=== PATIENT | male | born 1945 | race Caucasian/White ===

== ENCOUNTER 2017-12-21 07:03 | Inpatient (IN) | payer OTHER ==
[2017-12-21 07:33] LABS: ADD MAN DIFF? NO
[2017-12-21 07:41] LABS: BASO % 1 % (0-3); EOS # 0.4 x10^3/uL (0.0-0.7); EOS % 8 % (0-3); HEMATOCRIT 32.8 % (39.0-53.0); HEMOGLOBIN 11.1 g/dL (13.0-17.5); LYMPH # 1.2 x10^3/uL (1.0-4.8); LYMPH % 23 % (24-48); MEAN CORPUSCULAR HEMOGLOBIN 29 pg (25-35); MEAN CORPUSCULAR HGB CONC 34 g/dL (31-37); MEAN CORPUSCULAR VOLUME 85 fL (79-100); MONO # 0.4 x10^3/uL (0.0-1.1); MONO % 9 % (0-9); NEUT % 60 % (31-73); PLATELET COUNT 200 x10^3/uL (140-400); RED BLOOD COUNT 3.84 x10^6/uL (4.30-5.70); RED CELL DISTRIBUTION WIDTH 15.2 % (11.5-14.5); WHITE BLOOD COUNT 5.1 x10^3/uL (4.0-11.0)
[2017-12-21 07:54] LABS: ANION GAP 7 (6-14); BLOOD UREA NITROGEN 21 mg/dL (8-26); BUN/CREATININE RATIO 23 (6-20); CALCIUM 8.6 mg/dL (8.5-10.1); CARBON DIOXIDE 30 mmol/L (21-32); CHLORIDE 103 mmol/L (98-107); CREATININE 0.9 mg/dL (0.7-1.3); GFR 83.2; GLUCOSE 100 mg/dL (70-99); POTASSIUM 3.9 mmol/L (3.5-5.1); SODIUM 140 mmol/L (136-145)
[2017-12-21 07:56] LABS: TROPONINI < 0.017 ng/mL (0.000-0.055)
[2017-12-21] MEDS: FUROSEMIDE 20 MG/2 ML VIAL. IV (07:56)
[2017-12-21] MEDS: ASPIRIN CHEWABLE 81 MG TABLET. PO (07:57)
[2017-12-21] MEDS: MORPHINE SULFATE 4 MG/ML DISP.SYRIN. IV (07:57)
[2017-12-21 07:58] LABS: ALBUMIN 3.6 g/dL (3.4-5.0); ALBUMIN/GLOBULIN RATIO 0.9 (1.0-1.7); ALK PHOS 95 U/L (46-116); ALT (SGPT) 23 U/L (16-63); AST (SGOT) 25 U/L (15-37); TOTAL BILIRUBIN 0.5 mg/dL (0.2-1.0); TOTAL PROTEIN 7.4 g/dL (6.4-8.2)
[2017-12-21 07:59] LABS: INR 1.2 (0.8-1.1); PROTHROMBIN TIME PATIENT 14.2 SEC (11.7-14.0)
[2017-12-21 08:02] LABS: BILIRUBIN,URINE NEGATIVE (NEG); CLARITY,URINE CLEAR; COLOR,URINE YELLOW; GLUCOSE,URINE NEGATIVE (NEG); NITRITE,URINE NEGATIVE (NEG); PH,URINE 7.5; PROTEIN,URINE 100 mg/dL (NEG-TRACE); UROBILINOGEN,URINE 0.2 mg/dL (0.2 mg/dL)
[2017-12-21 08:04] LABS: CKMB INDEX 0.4 % (0-4); CKMB MASS 0.6 ng/mL (0.0-3.6); CREATINE KINASE 149 U/L (39-308)
[2017-12-21 08:04] LABS: NT-PRO BNP 1159 pg/mL (0-124)
[2017-12-21 08:11] LABS: LACTIC ACID 0.9 mmol/L (0.4-2.0)
[2017-12-21] MEDS: NITROGLYCERIN PREMIX 250 ML IV (08:25)
[2017-12-21 08:31] LABS: BACTERIA,URINE 0 /HPF (0-FEW); SQUAMOUS EPITHELIAL CELL,UR FEW /LPF
[2017-12-21] MEDS ORDERED: 0.9 % SODIUM CHLORIDE 10 ML DISP.SYRIN. IV (12:45)
[2017-12-21 12:47] LABS: POC GLUCOSE 85 mg/dL (70-99)
[2017-12-21 12:54] LABS: TROPONINI < 0.017 ng/mL (0.000-0.055)
[2017-12-21] MEDS ORDERED: ACETAMINOPHEN 500 MG TABLET PO (13:00)
[2017-12-21] MEDS ORDERED: NITROGLYCERIN SUBLINGUAL 0.4 MG BOTTLE OF 25. SL (13:00)
[2017-12-21] MEDS ORDERED: ONDANSETRON ODT 4 MG TAB.RAPDIS. PO (13:00)
[2017-12-21] MEDS ORDERED: oxyCODONE IR 5 MG TABLET PO (13:15)
[2017-12-21] MEDS: METOPROLOL SUCC 24HR ER 100 MG TAB.ER.24H. PO (14:00)
[2017-12-21 15:53] LABS: TROPONINI < 0.017 ng/mL (0.000-0.055)
[2017-12-21] MEDS: CETIRIZINE HCL 10 MG TABLET. PO (16:10)
[2017-12-21] MEDS: levETIRAcetam 500 MG TABLET PO ×2 (16:10→21:06)
[2017-12-21] MEDS: MULTIVITAMIN with MINERAL TABLET. PO (16:10)
[2017-12-21] MEDS: CHOLECALCIFEROL (VITAMIN D3) 1,000 UNIT TABLET PO (16:10)
[2017-12-21] MEDS: GABAPENTIN 400 MG CAPSULE. PO ×2 (16:11→21:05)
[2017-12-21] MEDS: SENNOSIDES/DOCUSATE 8.6/50MG TABLET. PO ×2 (16:11→21:06)
[2017-12-21] MEDS: OMEGA-3 FATTY ACIDS/FISH OIL 1,000 MG CAPSULE. PO (16:11)
[2017-12-21] MEDS: PANTOPRAZOLE 40 MG TABLET.DR. PO (16:11)
[2017-12-21] MEDS: POTASSIUM CHLORIDE 20 MEQ TABLET.ER. PO (16:12)
[2017-12-21] MEDS: SERTRALINE 50 MG TABLET. PO (16:12)
[2017-12-21] MEDS: amLODIPine BESYLATE 10 MG TABLET PO (16:13)
[2017-12-21] MEDS: lamoTRIgine 100 MG TABLET. PO (16:13)
[2017-12-21] MEDS: ISOSORBIDE MONONITRATE ER 30 MG TAB.ER.24H PO (16:14)
[2017-12-21] MEDS: INSULIN LISPRO 300 UNITS/3 ML INSULN.PEN. SQ (17:00)
[2017-12-21 17:31] LABS: POC GLUCOSE 103 mg/dL (70-99)
[2017-12-21] MEDS: PRIMIDONE 250 MG TABLET PO (18:25)
[2017-12-21] MEDS: LOSARTAN POTASSIUM 50 MG TABLET. PO (18:26)
[2017-12-21] MEDS: ACETAMINOPHEN 325 MG TABLET. PO (18:28)
[2017-12-21] MEDS: LABETALOL HCL 200 MG TABLET PO (21:06)
[2017-12-21] MEDS: ATORVASTATIN CALCIUM 40 MG TABLET. PO (21:06)
[2017-12-21] MEDS: LATANOPROST 0.005% OPHTH SOLUTION 2.5ML BOTTLE. OU (21:07)
[2017-12-21] MEDS: INSULIN GLARGINE 300 UNITS/3 ML INSULN.PEN. SQ (21:10)
[2017-12-21 22:15] LABS: MRSA BY PCR Negative (Negative)
[2017-12-22 00:06] LABS: POC GLUCOSE 109 mg/dL (70-99)
[2017-12-22 04:29] LABS: ADD MAN DIFF? NO
[2017-12-22 04:40] LABS: BASO % 1 % (0-3); EOS # 0.4 x10^3/uL (0.0-0.7); EOS % 8 % (0-3); HEMATOCRIT 29.1 % (39.0-53.0); HEMOGLOBIN 9.8 g/dL (13.0-17.5); LYMPH # 1.1 x10^3/uL (1.0-4.8); LYMPH % 22 % (24-48); MEAN CORPUSCULAR HEMOGLOBIN 29 pg (25-35); MEAN CORPUSCULAR HGB CONC 34 g/dL (31-37); MEAN CORPUSCULAR VOLUME 85 fL (79-100); MONO # 0.5 x10^3/uL (0.0-1.1); MONO % 10 % (0-9); NEUT # 2.8 x10^3uL (1.8-7.7); NEUT % 59 % (31-73); PLATELET COUNT 191 x10^3/uL (140-400); RED BLOOD COUNT 3.41 x10^6/uL (4.30-5.70); RED CELL DISTRIBUTION WIDTH 14.9 % (11.5-14.5); WHITE BLOOD COUNT 4.7 x10^3/uL (4.0-11.0)
[2017-12-22 05:18] LABS: INR 1.2 (0.8-1.1); PROTHROMBIN TIME PATIENT 14.9 SEC (11.7-14.0)
[2017-12-22 05:35] LABS: ALBUMIN 3.1 g/dL (3.4-5.0); ALK PHOS 85 U/L (46-116); ALT (SGPT) 20 U/L (16-63); ANION GAP 10 (6-14); AST (SGOT) 17 U/L (15-37); BLOOD UREA NITROGEN 20 mg/dL (8-26); BUN/CREATININE RATIO 18 (6-20); CALCIUM 8.5 mg/dL (8.5-10.1); CARBON DIOXIDE 30 mmol/L (21-32); CHLORIDE 103 mmol/L (98-107); CREATININE 1.1 mg/dL (0.7-1.3); GLUCOSE 94 mg/dL (70-99); POTASSIUM 3.1 mmol/L (3.5-5.1); SODIUM 143 mmol/L (136-145); TOTAL BILIRUBIN 0.3 mg/dL (0.2-1.0); TOTAL PROTEIN 6.2 g/dL (6.4-8.2)
[2017-12-22] MEDS: PANTOPRAZOLE 40 MG TABLET.DR. PO (08:47)
[2017-12-22] MEDS: POTASSIUM CHLORIDE 20 MEQ TABLET.ER. PO ×3 (08:48→13:04)
[2017-12-22] MEDS: OMEGA-3 FATTY ACIDS/FISH OIL 1,000 MG CAPSULE. PO (08:48)
[2017-12-22] MEDS: levETIRAcetam 500 MG TABLET PO ×2 (08:49→20:20)
[2017-12-22] MEDS: LOSARTAN POTASSIUM 50 MG TABLET. PO (08:49)
[2017-12-22] MEDS: amLODIPine BESYLATE 10 MG TABLET PO (08:49)
[2017-12-22] MEDS: SENNOSIDES/DOCUSATE 8.6/50MG TABLET. PO ×2 (08:49→20:23)
[2017-12-22] MEDS: CHOLECALCIFEROL (VITAMIN D3) 1,000 UNIT TABLET PO (08:49)
[2017-12-22] MEDS: ISOSORBIDE MONONITRATE ER 30 MG TAB.ER.24H PO (08:50)
[2017-12-22] MEDS: GABAPENTIN 400 MG CAPSULE. PO ×3 (08:50→20:21)
[2017-12-22] MEDS: MULTIVITAMIN with MINERAL TABLET. PO (08:50)
[2017-12-22] MEDS: CETIRIZINE HCL 10 MG TABLET. PO (08:50)
[2017-12-22] MEDS: lamoTRIgine 100 MG TABLET. PO (08:50)
[2017-12-22] MEDS: SERTRALINE 50 MG TABLET. PO (08:50)
[2017-12-22] MEDS: LABETALOL HCL 200 MG TABLET PO ×2 (09:00→20:20)
[2017-12-22 09:20] LABS: POC GLUCOSE 90 mg/dL (70-99)
[2017-12-22 09:27] LABS: MAGNESIUM 1.9 mg/dL (1.8-2.4)
[2017-12-22] MEDS: ASPIRIN ENTERIC COATED 81 MG TABLET.DR. PO (10:31)
[2017-12-22] MEDS: FUROSEMIDE 40 MG/4 ML VIAL. IVP (10:31)
[2017-12-22 13:09] LABS: POC GLUCOSE 128 mg/dL (70-99)
[2017-12-22] MEDS: PRIMIDONE 250 MG TABLET PO (17:51)
[2017-12-22] MEDS: INSULIN LISPRO 300 UNITS/3 ML INSULN.PEN. SQ (17:53)
[2017-12-22] MEDS: ATORVASTATIN CALCIUM 40 MG TABLET. PO (20:20)
[2017-12-22] MEDS: LATANOPROST 0.005% OPHTH SOLUTION 2.5ML BOTTLE. OU (20:21)
[2017-12-22] MEDS: INSULIN GLARGINE 300 UNITS/3 ML INSULN.PEN. SQ (20:23)
[2017-12-22 20:24] LABS: POC GLUCOSE 153 mg/dL (70-99)
[2017-12-23 02:55] LABS: POC GLUCOSE 139 mg/dL (70-99)
[2017-12-23 04:47] LABS: ADD MAN DIFF? NO
[2017-12-23 04:53] LABS: BASO % 0 % (0-3); EOS # 0.4 x10^3/uL (0.0-0.7); EOS % 8 % (0-3); HEMATOCRIT 29.6 % (39.0-53.0); HEMOGLOBIN 10.1 g/dL (13.0-17.5); LYMPH # 1.1 x10^3/uL (1.0-4.8); LYMPH % 20 % (24-48); MEAN CORPUSCULAR HEMOGLOBIN 29 pg (25-35); MEAN CORPUSCULAR HGB CONC 34 g/dL (31-37); MEAN CORPUSCULAR VOLUME 85 fL (79-100); MONO # 0.6 x10^3/uL (0.0-1.1); MONO % 10 % (0-9); NEUT # 3.5 x10^3uL (1.8-7.7); NEUT % 62 % (31-73); PLATELET COUNT 195 x10^3/uL (140-400); RED BLOOD COUNT 3.48 x10^6/uL (4.30-5.70); RED CELL DISTRIBUTION WIDTH 14.8 % (11.5-14.5); WHITE BLOOD COUNT 5.6 x10^3/uL (4.0-11.0)
[2017-12-23 05:19] LABS: ALBUMIN 3.1 g/dL (3.4-5.0); ALK PHOS 88 U/L (46-116); ALT (SGPT) 18 U/L (16-63); ANION GAP 7 (6-14); AST (SGOT) 13 U/L (15-37); BLOOD UREA NITROGEN 18 mg/dL (8-26); BUN/CREATININE RATIO 20 (6-20); CALCIUM 8.7 mg/dL (8.5-10.1); CARBON DIOXIDE 30 mmol/L (21-32); CHLORIDE 104 mmol/L (98-107); CREATININE 0.9 mg/dL (0.7-1.3); GFR 83.2; GLUCOSE 75 mg/dL (70-99); POTASSIUM 3.4 mmol/L (3.5-5.1); SODIUM 141 mmol/L (136-145); TOTAL BILIRUBIN 0.3 mg/dL (0.2-1.0); TOTAL PROTEIN 6.3 g/dL (6.4-8.2)
[2017-12-23 07:56] LABS: POC GLUCOSE 84 mg/dL (70-99)
[2017-12-23] MEDS: OMEGA-3 FATTY ACIDS/FISH OIL 1,000 MG CAPSULE. PO (08:29)
[2017-12-23] MEDS: levETIRAcetam 500 MG TABLET PO ×2 (08:29→21:18)
[2017-12-23] MEDS: ASPIRIN ENTERIC COATED 81 MG TABLET.DR. PO (08:30)
[2017-12-23] MEDS: PANTOPRAZOLE 40 MG TABLET.DR. PO (08:30)
[2017-12-23] MEDS: SERTRALINE 50 MG TABLET. PO (08:30)
[2017-12-23] MEDS: lamoTRIgine 100 MG TABLET. PO (08:31)
[2017-12-23] MEDS: CHOLECALCIFEROL (VITAMIN D3) 1,000 UNIT TABLET PO (08:31)
[2017-12-23] MEDS: POTASSIUM CHLORIDE 20 MEQ TABLET.ER. PO (08:31)
[2017-12-23] MEDS: MULTIVITAMIN with MINERAL TABLET. PO (08:31)
[2017-12-23] MEDS: CETIRIZINE HCL 10 MG TABLET. PO (08:32)
[2017-12-23] MEDS: SENNOSIDES/DOCUSATE 8.6/50MG TABLET. PO ×2 (08:32→21:18)
[2017-12-23] MEDS: GABAPENTIN 400 MG CAPSULE. PO ×3 (08:32→21:18)
[2017-12-23] MEDS: LABETALOL HCL 200 MG TABLET PO ×2 (08:32→21:17)
[2017-12-23] MEDS: amLODIPine BESYLATE 10 MG TABLET PO (08:33)
[2017-12-23] MEDS: ISOSORBIDE MONONITRATE ER 30 MG TAB.ER.24H PO (08:34)
[2017-12-23] MEDS: METOPROLOL TARTRATE 5 MG/5 ML VIAL. IVP (10:20)
[2017-12-23 11:09] LABS: POC GLUCOSE 155 mg/dL (70-99)
[2017-12-23 16:10] LABS: POC GLUCOSE 143 mg/dL (70-99)
[2017-12-23] MEDS: PRIMIDONE 250 MG TABLET PO (17:27)
[2017-12-23] MEDS: LOSARTAN POTASSIUM 50 MG TABLET. PO (17:27)
[2017-12-23] MEDS: INSULIN LISPRO 300 UNITS/3 ML INSULN.PEN. SQ (17:30)
[2017-12-23 20:15] LABS: POC GLUCOSE 165 mg/dL (70-99)
[2017-12-23] MEDS: ATORVASTATIN CALCIUM 40 MG TABLET. PO (21:17)
[2017-12-23] MEDS: LATANOPROST 0.005% OPHTH SOLUTION 2.5ML BOTTLE. OU (21:22)
[2017-12-23] MEDS: INSULIN GLARGINE 300 UNITS/3 ML INSULN.PEN. SQ (21:36)
[2017-12-24 07:43] LABS: POC GLUCOSE 114 mg/dL (70-99)
[2017-12-24] MEDS: OMEGA-3 FATTY ACIDS/FISH OIL 1,000 MG CAPSULE. PO (07:51)
[2017-12-24] MEDS: SERTRALINE 50 MG TABLET. PO (07:51)
[2017-12-24] MEDS: CETIRIZINE HCL 10 MG TABLET. PO (07:51)
[2017-12-24] MEDS: lamoTRIgine 100 MG TABLET. PO (07:51)
[2017-12-24] MEDS: GABAPENTIN 400 MG CAPSULE. PO ×3 (07:52→21:16)
[2017-12-24] MEDS: PANTOPRAZOLE 40 MG TABLET.DR. PO (07:52)
[2017-12-24] MEDS: CHOLECALCIFEROL (VITAMIN D3) 1,000 UNIT TABLET PO (07:52)
[2017-12-24] MEDS: POTASSIUM CHLORIDE 20 MEQ TABLET.ER. PO (07:52)
[2017-12-24] MEDS: MULTIVITAMIN with MINERAL TABLET. PO (07:52)
[2017-12-24] MEDS: SENNOSIDES/DOCUSATE 8.6/50MG TABLET. PO ×2 (07:52→21:16)
[2017-12-24] MEDS: levETIRAcetam 500 MG TABLET PO ×2 (07:52→21:16)
[2017-12-24] MEDS: ASPIRIN ENTERIC COATED 81 MG TABLET.DR. PO (07:53)
[2017-12-24] MEDS: amLODIPine BESYLATE 10 MG TABLET PO (07:54)
[2017-12-24] MEDS: ISOSORBIDE MONONITRATE ER 30 MG TAB.ER.24H PO (07:54)
[2017-12-24] MEDS: LABETALOL HCL 200 MG TABLET PO ×2 (10:07→21:17)
[2017-12-24] MEDS: FUROSEMIDE 40 MG/4 ML VIAL. IVP (11:20)
[2017-12-24 11:53] LABS: POC GLUCOSE 107 mg/dL (70-99)
[2017-12-24 16:24] LABS: POC GLUCOSE 93 mg/dL (70-99)
[2017-12-24] MEDS: fentaNYL PF VIAL 100 MCG/2 ML VIAL IV (17:50)
[2017-12-24] MEDS: IODIXANOL 320 MG/ML 100 ML VIAL. IART (17:50)
[2017-12-24] MEDS: LIDOCAINE 2% 20 ML VIAL. IJ (17:50)
[2017-12-24] MEDS: MIDAZOLAM HCL/PF 2 MG/2 ML VIAL. IV (17:51)
[2017-12-24] MEDS: PRIMIDONE 250 MG TABLET PO (18:18)
[2017-12-24] MEDS: LOSARTAN POTASSIUM 50 MG TABLET. PO (18:18)
[2017-12-24] MEDS: INSULIN LISPRO 300 UNITS/3 ML INSULN.PEN. SQ (18:25)
[2017-12-24 18:27] LABS: POC GLUCOSE 91 mg/dL (70-99)
[2017-12-24] MEDS ORDERED: NITROGLYCERIN SUBLINGUAL 0.4 MG BOTTLE OF 25. SL (18:45)
[2017-12-24] MEDS: ACETAMINOPHEN 325 MG TABLET. PO (19:18)
[2017-12-24] MEDS: ATORVASTATIN CALCIUM 40 MG TABLET. PO (21:17)
[2017-12-24] MEDS: LATANOPROST 0.005% OPHTH SOLUTION 2.5ML BOTTLE. OU (21:22)
[2017-12-24] MEDS: INSULIN GLARGINE 300 UNITS/3 ML INSULN.PEN. SQ (21:28)
[2017-12-24 22:02] LABS: POC GLUCOSE 98 mg/dL (70-99)
[2017-12-25 08:00] LABS: POC GLUCOSE 85 mg/dL (70-99)
[2017-12-25] MEDS: levETIRAcetam 500 MG TABLET PO ×2 (08:08→21:33)
[2017-12-25] MEDS: PANTOPRAZOLE 40 MG TABLET.DR. PO (08:08)
[2017-12-25] MEDS: POTASSIUM CHLORIDE 20 MEQ TABLET.ER. PO (08:08)
[2017-12-25] MEDS: MULTIVITAMIN with MINERAL TABLET. PO (08:08)
[2017-12-25] MEDS: CETIRIZINE HCL 10 MG TABLET. PO (08:08)
[2017-12-25] MEDS: lamoTRIgine 100 MG TABLET. PO (08:08)
[2017-12-25] MEDS: LABETALOL HCL 200 MG TABLET PO ×2 (08:09→21:34)
[2017-12-25] MEDS: OMEGA-3 FATTY ACIDS/FISH OIL 1,000 MG CAPSULE. PO (08:09)
[2017-12-25] MEDS: ASPIRIN ENTERIC COATED 81 MG TABLET.DR. PO (08:09)
[2017-12-25] MEDS: amLODIPine BESYLATE 10 MG TABLET PO (08:09)
[2017-12-25] MEDS: CHOLECALCIFEROL (VITAMIN D3) 1,000 UNIT TABLET PO (08:09)
[2017-12-25] MEDS: SERTRALINE 50 MG TABLET. PO (08:09)
[2017-12-25] MEDS: SENNOSIDES/DOCUSATE 8.6/50MG TABLET. PO ×2 (08:09→21:34)
[2017-12-25] MEDS: ISOSORBIDE MONONITRATE ER 30 MG TAB.ER.24H PO (08:10)
[2017-12-25] MEDS: GABAPENTIN 400 MG CAPSULE. PO ×3 (08:10→21:34)
[2017-12-25 11:25] LABS: POC GLUCOSE 149 mg/dL (70-99)
[2017-12-25] MEDS: FUROSEMIDE 40 MG/4 ML VIAL. IVP (12:13)
[2017-12-25] MEDS: ACETAMINOPHEN 325 MG TABLET. PO (15:16)
[2017-12-25 16:45] LABS: POC GLUCOSE 152 mg/dL (70-99)
[2017-12-25] MEDS: PRIMIDONE 250 MG TABLET PO (17:31)
[2017-12-25] MEDS: LOSARTAN POTASSIUM 50 MG TABLET. PO (17:31)
[2017-12-25] MEDS: INSULIN LISPRO 300 UNITS/3 ML INSULN.PEN. SQ (17:34)
[2017-12-25 21:20] LABS: POC GLUCOSE 125 mg/dL (70-99)
[2017-12-25] MEDS: LATANOPROST 0.005% OPHTH SOLUTION 2.5ML BOTTLE. OU (21:33)
[2017-12-25] MEDS: ATORVASTATIN CALCIUM 40 MG TABLET. PO (21:34)
[2017-12-25] MEDS: INSULIN GLARGINE 300 UNITS/3 ML INSULN.PEN. SQ (21:39)
[2017-12-26 06:00] LABS: ANION GAP 9 (6-14); BLOOD UREA NITROGEN 22 mg/dL (8-26); CALCIUM 8.6 mg/dL (8.5-10.1); CARBON DIOXIDE 30 mmol/L (21-32); CHLORIDE 99 mmol/L (98-107); GFR 73.7; GLUCOSE 109 mg/dL (70-99); POTASSIUM 3.4 mmol/L (3.5-5.1); SODIUM 138 mmol/L (136-145)
[2017-12-26 07:47] LABS: POC GLUCOSE 105 mg/dL (70-99)
[2017-12-26] MEDS: lamoTRIgine 100 MG TABLET. PO (08:10)
[2017-12-26] MEDS: SERTRALINE 50 MG TABLET. PO (08:10)
[2017-12-26] MEDS: FUROSEMIDE 40 MG TABLET. PO (08:10)
[2017-12-26] MEDS: SENNOSIDES/DOCUSATE 8.6/50MG TABLET. PO ×2 (08:10→20:47)
[2017-12-26] MEDS: POTASSIUM CHLORIDE 20 MEQ TABLET.ER. PO (08:10)
[2017-12-26] MEDS: ISOSORBIDE MONONITRATE ER 30 MG TAB.ER.24H PO (08:11)
[2017-12-26] MEDS: CETIRIZINE HCL 10 MG TABLET. PO (08:11)
[2017-12-26] MEDS: GABAPENTIN 400 MG CAPSULE. PO ×3 (08:11→20:46)
[2017-12-26] MEDS: ASPIRIN ENTERIC COATED 81 MG TABLET.DR. PO (08:11)
[2017-12-26] MEDS: levETIRAcetam 500 MG TABLET PO ×2 (08:11→20:46)
[2017-12-26] MEDS: amLODIPine BESYLATE 10 MG TABLET PO (08:11)
[2017-12-26] MEDS: MULTIVITAMIN with MINERAL TABLET. PO (08:11)
[2017-12-26] MEDS: OMEGA-3 FATTY ACIDS/FISH OIL 1,000 MG CAPSULE. PO (08:11)
[2017-12-26] MEDS: LABETALOL HCL 200 MG TABLET PO ×2 (08:12→20:47)
[2017-12-26] MEDS: CHOLECALCIFEROL (VITAMIN D3) 1,000 UNIT TABLET PO (08:12)
[2017-12-26] MEDS: PANTOPRAZOLE 40 MG TABLET.DR. PO (08:12)
[2017-12-26 11:43] LABS: POC GLUCOSE 171 mg/dL (70-99)
[2017-12-26 15:44] LABS: POC GLUCOSE 111 mg/dL (70-99)
[2017-12-26] MEDS: PRIMIDONE 250 MG TABLET PO (17:18)
[2017-12-26] MEDS: LOSARTAN POTASSIUM 50 MG TABLET. PO (17:18)
[2017-12-26] MEDS: INSULIN LISPRO 300 UNITS/3 ML INSULN.PEN. SQ (17:22)
[2017-12-26 20:39] LABS: POC GLUCOSE 157 mg/dL (70-99)
[2017-12-26] MEDS: ATORVASTATIN CALCIUM 40 MG TABLET. PO (20:46)
[2017-12-26] MEDS: LATANOPROST 0.005% OPHTH SOLUTION 2.5ML BOTTLE. OU (20:46)
[2017-12-26] MEDS: INSULIN GLARGINE 300 UNITS/3 ML INSULN.PEN. SQ (20:53)
[2017-12-27 06:30] LABS: ALBUMIN 3.2 g/dL (3.4-5.0); ALBUMIN/GLOBULIN RATIO 0.9 (1.0-1.7); ALK PHOS 91 U/L (46-116); ALT (SGPT) 16 U/L (16-63); ANION GAP 7 (6-14); AST (SGOT) 13 U/L (15-37); BLOOD UREA NITROGEN 22 mg/dL (8-26); BUN/CREATININE RATIO 22 (6-20); CALCIUM 8.7 mg/dL (8.5-10.1); CARBON DIOXIDE 31 mmol/L (21-32); CHLORIDE 102 mmol/L (98-107); GFR 73.7; GLUCOSE 82 mg/dL (70-99); POTASSIUM 3.3 mmol/L (3.5-5.1); SODIUM 140 mmol/L (136-145); TOTAL BILIRUBIN 0.3 mg/dL (0.2-1.0); TOTAL PROTEIN 6.6 g/dL (6.4-8.2)
[2017-12-27 06:45] LABS: HEMATOCRIT 31.2 % (39.0-53.0); HEMOGLOBIN 10.7 g/dL (13.0-17.5); MEAN CORPUSCULAR HEMOGLOBIN 29 pg (25-35); MEAN CORPUSCULAR HGB CONC 34 g/dL (31-37); MEAN CORPUSCULAR VOLUME 85 fL (79-100); PLATELET COUNT 182 x10^3/uL (140-400); RED BLOOD COUNT 3.67 x10^6/uL (4.30-5.70); RED CELL DISTRIBUTION WIDTH 15.2 % (11.5-14.5); WHITE BLOOD COUNT 5.7 x10^3/uL (4.0-11.0)
[2017-12-27 07:57] LABS: POC GLUCOSE 91 mg/dL (70-99)
[2017-12-27] MEDS: ASPIRIN ENTERIC COATED 81 MG TABLET.DR. PO (08:24)
[2017-12-27] MEDS: PANTOPRAZOLE 40 MG TABLET.DR. PO (08:24)
[2017-12-27] MEDS: OMEGA-3 FATTY ACIDS/FISH OIL 1,000 MG CAPSULE. PO (08:25)
[2017-12-27] MEDS: POTASSIUM CHLORIDE 20 MEQ TABLET.ER. PO ×2 (08:25)
[2017-12-27] MEDS: GABAPENTIN 400 MG CAPSULE. PO ×3 (08:26→21:11)
[2017-12-27] MEDS: lamoTRIgine 100 MG TABLET. PO (08:26)
[2017-12-27] MEDS: FUROSEMIDE 40 MG TABLET. PO (08:26)
[2017-12-27] MEDS: ISOSORBIDE MONONITRATE ER 30 MG TAB.ER.24H PO (08:26)
[2017-12-27] MEDS: levETIRAcetam 500 MG TABLET PO ×2 (08:26→21:10)
[2017-12-27] MEDS: LABETALOL HCL 200 MG TABLET PO ×2 (08:27→21:10)
[2017-12-27] MEDS: SENNOSIDES/DOCUSATE 8.6/50MG TABLET. PO ×2 (08:27→21:11)
[2017-12-27] MEDS: CHOLECALCIFEROL (VITAMIN D3) 1,000 UNIT TABLET PO (08:27)
[2017-12-27] MEDS: amLODIPine BESYLATE 10 MG TABLET PO (08:27)
[2017-12-27] MEDS: MULTIVITAMIN with MINERAL TABLET. PO (08:27)
[2017-12-27] MEDS: SERTRALINE 50 MG TABLET. PO (08:28)
[2017-12-27] MEDS: CETIRIZINE HCL 10 MG TABLET. PO (08:28)
[2017-12-27 11:55] LABS: POC GLUCOSE 119 mg/dL (70-99)
[2017-12-27 16:15] LABS: POC GLUCOSE 162 mg/dL (70-99)
[2017-12-27] MEDS: LOSARTAN POTASSIUM 50 MG TABLET. PO (16:36)
[2017-12-27] MEDS: PRIMIDONE 250 MG TABLET PO (16:36)
[2017-12-27] MEDS: INSULIN LISPRO 300 UNITS/3 ML INSULN.PEN. SQ (17:42)
[2017-12-27 19:55] LABS: POC GLUCOSE 103 mg/dL (70-99)
[2017-12-27] MEDS: LATANOPROST 0.005% OPHTH SOLUTION 2.5ML BOTTLE. OU (21:10)
[2017-12-27] MEDS: ATORVASTATIN CALCIUM 40 MG TABLET. PO (21:10)
[2017-12-27] MEDS: INSULIN GLARGINE 300 UNITS/3 ML INSULN.PEN. SQ (21:15)
[2017-12-28 07:53] LABS: POC GLUCOSE 79 mg/dL (70-99)
[2017-12-28] MEDS: GABAPENTIN 400 MG CAPSULE. PO (08:15)
[2017-12-28] MEDS: PANTOPRAZOLE 40 MG TABLET.DR. PO (08:16)
[2017-12-28] MEDS: ISOSORBIDE MONONITRATE ER 30 MG TAB.ER.24H PO (08:16)
[2017-12-28] MEDS: levETIRAcetam 500 MG TABLET PO (08:16)
[2017-12-28] MEDS: ASPIRIN ENTERIC COATED 81 MG TABLET.DR. PO (08:16)
[2017-12-28] MEDS: CETIRIZINE HCL 10 MG TABLET. PO (08:17)
[2017-12-28] MEDS: OMEGA-3 FATTY ACIDS/FISH OIL 1,000 MG CAPSULE. PO (08:17)
[2017-12-28] MEDS: POTASSIUM CHLORIDE 20 MEQ TABLET.ER. PO (08:17)
[2017-12-28] MEDS: SENNOSIDES/DOCUSATE 8.6/50MG TABLET. PO (08:17)
[2017-12-28] MEDS: amLODIPine BESYLATE 10 MG TABLET PO (08:17)
[2017-12-28] MEDS: lamoTRIgine 100 MG TABLET. PO (08:18)
[2017-12-28] MEDS: LABETALOL HCL 200 MG TABLET PO (08:18)
[2017-12-28] MEDS: SERTRALINE 50 MG TABLET. PO (08:18)
[2017-12-28] MEDS: MULTIVITAMIN with MINERAL TABLET. PO (08:18)
[2017-12-28] MEDS: CHOLECALCIFEROL (VITAMIN D3) 1,000 UNIT TABLET PO (08:18)
[2017-12-28] MEDS: FUROSEMIDE 40 MG TABLET. PO (08:22)
== END 2017-12-28 08:40 | DRG 286 ==
LOC: ER 07:03 → 1 WEST ICU 08:50 → 2 NORTH 12-22 19:36
PROC: 5A09357 Assistance with Respiratory Ventilation, Less than 24 Consecutive Hours, Continuous Positive Airway Pressure (ICD-10-PCS; 2017-12-21)
PROC: 5A09557 Assistance with Respiratory Ventilation, Greater than 96 Consecutive Hours, Continuous Positive Airway Pressure (ICD-10-PCS; 2017-12-21)
PROC: 4A023N8 Measurement of Cardiac Sampling and Pressure, Bilateral, Percutaneous Approach (ICD-10-PCS; principal; 2017-12-24)
PROC: B2111ZZ Fluoroscopy of Multiple Coronary Arteries using Low Osmolar Contrast (ICD-10-PCS; 2017-12-24)
PROC: B2151ZZ Fluoroscopy of Left Heart using Low Osmolar Contrast (ICD-10-PCS; 2017-12-24)
PROC: 5A09357 Assistance with Respiratory Ventilation, Less than 24 Consecutive Hours, Continuous Positive Airway Pressure (ICD-10-PCS; 2017-12-28)
DX: I11.0 Hypertensive heart disease with heart failure (principal); J96.01 Acute respiratory failure with hypoxia; I26.09 Other pulmonary embolism with acute cor pulmonale; I25.10 Atherosclerotic heart disease of native coronary artery without angina pectoris; I50.33 Acute on chronic diastolic (congestive) heart failure; I27.20 Pulmonary hypertension, unspecified; I48.0 Paroxysmal atrial fibrillation; E11.9 Type 2 diabetes mellitus without complications; I34.0 Nonrheumatic mitral (valve) insufficiency; I07.1 Rheumatic tricuspid insufficiency; E78.5 Hyperlipidemia, unspecified; G47.33 Obstructive sleep apnea (adult) (pediatric); I27.29 Other secondary pulmonary hypertension; K21.9 Gastro-esophageal reflux disease without esophagitis; F32.9 Major depressive disorder, single episode, unspecified; Z79.01 Long term (current) use of anticoagulants; Z91.81 History of falling; Z86.018 Personal history of other benign neoplasm; Z88.2 Allergy status to sulfonamides; Z95.5 Presence of coronary angioplasty implant and graft; I44.7 Left bundle-branch block, unspecified
CPT/HCPCS: 36415; 71045; 76770; 78582; 80048; 80053; 81001; 82553; 82962; 83605; 83735; 83880; 84484; 85025; 85027; 85610; 87641; 93005; 93306; 93460; 94618; 94640; 94660; 96365; 96366; 96374; 96375; 97116-GP; 97162-GP; 97166-GO; 97530-GO; 97535-GO; 99152; 99153; 99291; A9540; A9558; C1769; C1771; C1773; C1892; G0269; J1644; J1815; J1940; J2250; J2270; J3010; J3490